=== PATIENT | female | born 1960 | race Caucasian/White ===

== ENCOUNTER 2018-07-12 08:55 | Inpatient (IN) | payer OTHER ==
[2018-07-12 09:40] LABS: ADD MAN DIFF? NO
[2018-07-12 09:43] LABS: WHITE BLOOD COUNT 19.6 10^3/ul (4.8-10.8)
[2018-07-12 09:43] LABS: BASOPHIL # 0.1 10^3/ul (0.0-0.1); BASOPHILS % 0.3 % (0.0-2.0); EOSINOPHILS # 0.1 10^3/ul (0.0-0.5); EOSINOPHILS % 0.5 % (0.0-7.0); HEMATOCRIT 39.6 % (37.0-47.0); HEMOGLOBIN 12.6 g/dl (12.0-16.0); LYMPHOCYTES # 3.1 10^3/ul (0.8-2.9); LYMPHOCYTES % 15.8 % (15.0-51.0); MEAN CORPUSCULAR HEMOGLOBIN 28.6 pg (29.0-33.0); MEAN CORPUSCULAR HGB CONC 31.8 g/dl (32.0-37.0); MEAN PLATELET VOLUME 10.8 fl (7.4-10.4); MONOCYTE # 1.2 10^3/ul (0.3-0.9); NEUTROPHIL # 15.1 10^3/ul (1.6-7.5); NEUTROPHILS % 76.8 % (39.0-77.0); PLATELET COUNT 346 10^3/UL (140-415); RED CELL DISTRIBUTION WIDTH 12.7 % (11.5-14.5)
[2018-07-12 09:49] LABS: ADD UMIC YES; UR ASCORBIC ACID NEGATIVE (NEGATIVE); UR BACTERIA FEW /HPF (NONE SEEN); UR BILIRUBIN (Dip) NEGATIVE (NEGATIVE); UR BLOOD (Dip) NEGATIVE (NEGATIVE); UR CLARITY CLOUDY (CLEAR); UR COLOR AMBER (YELLOW); UR GLUCOSE (Dip) NEGATIVE (NEGATIVE); UR KETONES (Dip) NEGATIVE (NEGATIVE); UR LEUKOCYTE ESTERASE (Dip) 1+ Leu/ul (NEGATIVE); UR MUCUS MANY /HPF (NONE SEEN); UR NITRITE (Dip) NEGATIVE (NEGATIVE); UR RBC 2 /HPF (0-5); UR SPECIFIC GRAVITY (Dip) 1.025 (1.003-1.030); UR SQUAMOUS EPITHELIAL CELL MODERATE /HPF (FEW); UR TOTAL PROTEIN (Dip) 2+ mg/dl (NEGATIVE); UR UROBILINOGEN (Dip) 2+ mg/dL (NEGATIVE); UR WBC 14 /HPF (0-5)
[2018-07-12] MEDS: ONDANSETRON 4 MG INJ IV ×2 (09:49→21:18)
[2018-07-12] MEDS: SOD CHLORIDE 0.9% 1,000 ML IV ×2 (09:49→15:18)
[2018-07-12] MEDS: LIDOCAINE/MYLANTA 40 ML BTL PO (09:49)
[2018-07-12 09:50] LABS: INR 1.03; PROTIME 13.6 Sec (11.9-14.9); PT RATIO 1.1
[2018-07-12] MEDS: BELLADONNA/PHENOBARBITAL TAB PO (09:50)
[2018-07-12] MEDS: morphine 4 MG/ML VIAL IV (09:50)
[2018-07-12 09:53] LABS: ALANINE AMINOTRANSFERASE 25 IU/L (13-69); ALBUMIN 4.4 g/dl (3.3-4.9); ALBUMIN/GLOBULIN RATIO 0.86; ALKALINE PHOSPHATASE 99 IU/L (42-121); ANION GAP 17 (8-16); ASPARTATE AMINO TRANSFERASE 40 IU/L (15-46); BILIRUBIN,INDIRECT 0.5 mg/dl (0-1.1); BILIRUBIN,TOTAL 0.5 mg/dl (0.2-1.3); BLOOD UREA NITROGEN 14 mg/dl (7-20); CALCIUM 9.6 mg/dl (8.4-10.2); CARBON DIOXIDE 25 mmol/L (21-31); CHLORIDE 103 mmol/L (97-110); GLUCOSE 125 mg/dl (70-220); LIPASE 74 U/L (23-300); SODIUM 140 mmol/L (135-144); TOTAL PROTEIN 9.5 g/dl (6.1-8.1)
[2018-07-12] MEDS: CEFTRIAXONE 1 GM/50 ML (PMX) 50 ML IVPB (12:01)
[2018-07-12] MEDS: metroNIDAZOLE 500 MG/NS (PMX) 100 ML IVPB ×3 (13:19→22:13)
[2018-07-12] MEDS ORDERED: MAGNESIUM HYDROXIDE 30ML CUP PO (14:30)
[2018-07-12] MEDS ORDERED: NA PHOSPHATE/BIPHOS 133 ML ENEMA PR (14:30)
[2018-07-12] MEDS ORDERED: DOCUSATE SODIUM 100 MG CAP PO (14:30)
[2018-07-12] MEDS ORDERED: LORAZEPAM 2 MG INJ IV (14:30)
[2018-07-12] MEDS ORDERED: GLUCAGON 1 MG INJ IM (14:30)
[2018-07-12] MEDS ORDERED: GLUCOSE GEL 15 GRAM TUBE PO ×2 (14:30)
[2018-07-12] MEDS ORDERED: GLUCOSE GEL 15 GRAM TUBE BUCCAL (14:30)
[2018-07-12] MEDS ORDERED: NACL 0.9% 3 ML SYG IV (14:30)
[2018-07-12] MEDS ORDERED: ACETAMINOPHEN 325 MG TAB PO (14:30)
[2018-07-12] MEDS ORDERED: NITROGLYCERIN (SL) 0.4 MG TAB SL (14:30)
[2018-07-12] MEDS ORDERED: DEXTROSE 50% 50 ML SYRINGE IV ×2 (14:30)
[2018-07-12] MEDS ORDERED: ALBUTEROL/IPRATROPIUM (NEB) 3 ML AMP HHN (14:30)
[2018-07-12 14:50] LABS: INR 1.05; PROTIME 13.8 Sec (11.9-14.9); PT RATIO 1.1
[2018-07-12 14:51] LABS: PARTIAL THROMBOPLASTIN TIME 30.1 Sec (25.0-35.0)
[2018-07-12] MEDS: morphine 2 MG INJ IV ×2 (15:18→21:18)
[2018-07-12 15:22] LABS: FREE T4 (FREE THYROXINE) 1.35 ng/dl (0.64-1.79)
[2018-07-12] MEDS: INSULIN ASPART [NOVOLOG] 3 ML PEN SC ×2 (17:00→21:00)
[2018-07-12] MEDS: CIPROFLOXACIN 400MG/D5W 200 ML IVPB ×2 (18:00→21:09)
[2018-07-12] MEDS: HEPARIN 5,000 UNIT/0.5 ML VIAL SC (21:10)
[2018-07-13] MEDS: SOD CHLORIDE 0.9% 1,000 ML IV ×3 (00:13→17:40)
[2018-07-13] MEDS: INSULIN ASPART [NOVOLOG] 3 ML PEN SC ×6 (01:00→20:19)
[2018-07-13] MEDS: morphine 2 MG INJ IV ×2 (01:33→09:08)
[2018-07-13] MEDS: metroNIDAZOLE 500 MG/NS (PMX) 100 ML IVPB ×3 (05:39→21:19)
[2018-07-13] MEDS: PANTOPRAZOLE (EC) 40 MG TAB PO (05:40)
[2018-07-13 07:16] LABS: ADD MAN DIFF? NO
[2018-07-13 07:20] LABS: BASOPHILS % 0.2 % (0.0-2.0); EOSINOPHILS # 0.1 10^3/ul (0.0-0.5); EOSINOPHILS % 0.5 % (0.0-7.0); HEMATOCRIT 33.6 % (37.0-47.0); HEMOGLOBIN 10.8 g/dl (12.0-16.0); LYMPHOCYTES # 1.8 10^3/ul (0.8-2.9); LYMPHOCYTES % 10.9 % (15.0-51.0); MEAN CORPUSCULAR HEMOGLOBIN 29.4 pg (29.0-33.0); MEAN CORPUSCULAR HGB CONC 32.1 g/dl (32.0-37.0); MEAN CORPUSCULAR VOLUME 91.6 fl (82.0-101.0); MEAN PLATELET VOLUME 10.9 fl (7.4-10.4); NEUTROPHIL # 13.8 10^3/ul (1.6-7.5); NEUTROPHILS % 81.9 % (39.0-77.0); PLATELET COUNT 267 10^3/UL (140-415); RED BLOOD COUNT 3.67 10^6/ul (4.20-5.40); RED CELL DISTRIBUTION WIDTH 12.6 % (11.5-14.5)
[2018-07-13 07:20] LABS: WHITE BLOOD COUNT 16.9 10^3/ul (4.8-10.8)
[2018-07-13 07:43] LABS: HEMOGLOBIN A1C 6.5 % (0-5.9)
[2018-07-13 07:47] LABS: ANION GAP 11 (8-16); BLOOD UREA NITROGEN 8 mg/dl (7-20); CALCIUM 8.6 mg/dl (8.4-10.2); CARBON DIOXIDE 26 mmol/L (21-31); CHLORIDE 106 mmol/L (97-110); CHOL/HDL RATIO 5.4 RATIO; CHOLESTEROL 104 mg/dl (100-200); CREATININE 0.62 mg/dl (0.44-1.00); GLUCOSE 119 mg/dl (70-220); HDL CHOLESTEROL 19 mg/dl (35-98); LDL CHOLESTEROL,CALCULATED 69 mg/dl; MAGNESIUM 2.1 mg/dl (1.7-2.5); PHOSPHORUS 3.5 mg/dl (2.5-4.9); POTASSIUM 3.9 mmol/L (3.5-5.1); SODIUM 139 mmol/L (135-144); TRIGLYCERIDES 81 mg/dl (0-149)
[2018-07-13] MEDS: CIPROFLOXACIN 400MG/D5W 200 ML IVPB ×2 (09:06→20:15)
[2018-07-13] MEDS: HEPARIN 5,000 UNIT/0.5 ML VIAL SC ×2 (09:08→20:22)
[2018-07-13] MEDS ORDERED: morphine LIQ (10 MG/5 ML) CUP PO (15:00)
[2018-07-13] MEDS: HYDROCODONE/APAP (5/325) TAB PO (17:40)
[2018-07-13] MEDS: ONDANSETRON 4 MG INJ IV (21:59)
[2018-07-14] MEDS: SOD CHLORIDE 0.9% 1,000 ML IV ×3 (06:11→23:00)
[2018-07-14] MEDS: PANTOPRAZOLE (EC) 40 MG TAB PO (06:11)
[2018-07-14] MEDS: metroNIDAZOLE 500 MG/NS (PMX) 100 ML IVPB ×3 (06:11→22:29)
[2018-07-14] MEDS: HYDROCODONE/APAP (5/325) TAB PO ×2 (06:14→19:38)
[2018-07-14 06:15] LABS: ADD MAN DIFF? NO
[2018-07-14 06:19] LABS: BASOPHILS % 0.2 % (0.0-2.0); EOSINOPHILS # 0.1 10^3/ul (0.0-0.5); EOSINOPHILS % 0.7 % (0.0-7.0); HEMATOCRIT 32.3 % (37.0-47.0); HEMOGLOBIN 10.4 g/dl (12.0-16.0); LYMPHOCYTES # 2.1 10^3/ul (0.8-2.9); LYMPHOCYTES % 14.8 % (15.0-51.0); MEAN CORPUSCULAR HEMOGLOBIN 29.4 pg (29.0-33.0); MEAN CORPUSCULAR HGB CONC 32.2 g/dl (32.0-37.0); MEAN CORPUSCULAR VOLUME 91.2 fl (82.0-101.0); MEAN PLATELET VOLUME 11.4 fl (7.4-10.4); MONOCYTES % 7.3 % (0.0-11.0); NEUTROPHIL # 10.7 10^3/ul (1.6-7.5); NEUTROPHILS % 76.6 % (39.0-77.0); PLATELET COUNT 266 10^3/UL (140-415); RED BLOOD COUNT 3.54 10^6/ul (4.20-5.40); RED CELL DISTRIBUTION WIDTH 12.4 % (11.5-14.5)
[2018-07-14 06:58] LABS: ANION GAP 9 (8-16); BLOOD UREA NITROGEN 5 mg/dl (7-20); CALCIUM 8.5 mg/dl (8.4-10.2); CARBON DIOXIDE 28 mmol/L (21-31); CHLORIDE 105 mmol/L (97-110); CREATININE 0.62 mg/dl (0.44-1.00); GLUCOSE 104 mg/dl (70-220); SODIUM 138 mmol/L (135-144)
[2018-07-14] MEDS: INSULIN ASPART [NOVOLOG] 3 ML PEN SC ×4 (08:00→20:42)
[2018-07-14] MEDS: CIPROFLOXACIN 400MG/D5W 200 ML IVPB ×2 (09:29→20:40)
[2018-07-14] MEDS: HEPARIN 5,000 UNIT/0.5 ML VIAL SC ×2 (09:35→20:54)
[2018-07-14] MEDS: IOHEXOL 14.3 MG(I)/ML (ADULT) BTL PO (16:34)
[2018-07-14] MEDS: IOHEXOL 300MG/ML 150 ML BTL (19:31)
[2018-07-14] MEDS: SOD CHLORIDE 0.9% 100 ML (19:31)
[2018-07-15] MEDS: SOD CHLORIDE 0.9% 1,000 ML IV ×3 (02:13→22:13)
[2018-07-15] MEDS: metroNIDAZOLE 500 MG/NS (PMX) 100 ML IVPB (05:18)
[2018-07-15] MEDS: PANTOPRAZOLE (EC) 40 MG TAB PO (05:18)
[2018-07-15] MEDS: INSULIN ASPART [NOVOLOG] 3 ML PEN SC ×4 (08:00→20:42)
[2018-07-15 08:02] LABS: ADD MAN DIFF? NO
[2018-07-15 08:17] LABS: WHITE BLOOD COUNT 14.7 10^3/ul (4.8-10.8)
[2018-07-15 08:17] LABS: BASOPHILS % 0.2 % (0.0-2.0); EOSINOPHILS # 0.1 10^3/ul (0.0-0.5); EOSINOPHILS % 0.5 % (0.0-7.0); HEMATOCRIT 32.1 % (37.0-47.0); HEMOGLOBIN 10.2 g/dl (12.0-16.0); LYMPHOCYTES % 13.9 % (15.0-51.0); MEAN CORPUSCULAR HEMOGLOBIN 28.3 pg (29.0-33.0); MEAN CORPUSCULAR HGB CONC 31.8 g/dl (32.0-37.0); MEAN CORPUSCULAR VOLUME 89.2 fl (82.0-101.0); MEAN PLATELET VOLUME 11.4 fl (7.4-10.4); NEUTROPHIL # 11.4 10^3/ul (1.6-7.5); NEUTROPHILS % 77.7 % (39.0-77.0); PLATELET COUNT 290 10^3/UL (140-415); RED CELL DISTRIBUTION WIDTH 12.6 % (11.5-14.5)
[2018-07-15] MEDS: CIPROFLOXACIN 400MG/D5W 200 ML IVPB (08:34)
[2018-07-15 08:37] LABS: PHOSPHORUS 3.6 mg/dl (2.5-4.9)
[2018-07-15 08:37] LABS: MAGNESIUM 1.9 mg/dl (1.7-2.5)
[2018-07-15] MEDS: HEPARIN 5,000 UNIT/0.5 ML VIAL SC ×2 (08:40→20:41)
[2018-07-15 08:44] LABS: ANION GAP 12 (8-16); BLOOD UREA NITROGEN 4 mg/dl (7-20); CALCIUM 8.7 mg/dl (8.4-10.2); CARBON DIOXIDE 29 mmol/L (21-31); CHLORIDE 101 mmol/L (97-110); CREATININE 0.65 mg/dl (0.44-1.00); GLUCOSE 110 mg/dl (70-220); POTASSIUM 3.6 mmol/L (3.5-5.1); SODIUM 138 mmol/L (135-144)
[2018-07-15] MEDS: HYDROCODONE/APAP (5/325) TAB PO ×2 (08:50→19:55)
[2018-07-15] MEDS: hydrALAzine 20 MG INJ IV (14:08)
[2018-07-15] MEDS: PIPER-TAZO 3.375 GM IV (PMX) 100 ML IVPB ×2 (14:08→19:31)
[2018-07-15] MEDS ORDERED: LIDOCAINE 1% (MPF) 5 ML VIAL ×2 (16:36→16:38)
[2018-07-15] MEDS ORDERED: MIDAZOLAM 1 MG/ML 2 ML INJ (17:18)
[2018-07-15] MEDS ORDERED: SOD CHLORIDE 0.9% 500 ML (17:18)
[2018-07-15] MEDS ORDERED: FENTAnyl 50 MCG/ML VIAL (17:18)
[2018-07-15] MEDS: IOHEXOL 300MG/ML 150 ML BTL (17:30)
[2018-07-16] MEDS: PIPER-TAZO 3.375 GM IV (PMX) 100 ML IVPB ×3 (00:45→12:03)
[2018-07-16] MEDS: HYDROCODONE/APAP (5/325) TAB PO (01:02)
[2018-07-16 05:00] LABS: ADD MAN DIFF? NO
[2018-07-16 05:11] LABS: BASOPHILS % 0.1 % (0.0-2.0); EOSINOPHILS % 0.1 % (0.0-7.0); HEMATOCRIT 33.2 % (37.0-47.0); HEMOGLOBIN 10.6 g/dl (12.0-16.0); LYMPHOCYTES # 1.8 10^3/ul (0.8-2.9); LYMPHOCYTES % 12.8 % (15.0-51.0); MEAN CORPUSCULAR HEMOGLOBIN 28.4 pg (29.0-33.0); MEAN CORPUSCULAR HGB CONC 31.9 g/dl (32.0-37.0); MEAN PLATELET VOLUME 10.9 fl (7.4-10.4); MONOCYTE # 0.7 10^3/ul (0.3-0.9); MONOCYTES % 4.8 % (0.0-11.0); NEUTROPHIL # 11.3 10^3/ul (1.6-7.5); NEUTROPHILS % 81.5 % (39.0-77.0); PLATELET COUNT 297 10^3/UL (140-415); RED BLOOD COUNT 3.73 10^6/ul (4.20-5.40); RED CELL DISTRIBUTION WIDTH 12.8 % (11.5-14.5)
[2018-07-16 05:11] LABS: WHITE BLOOD COUNT 13.8 10^3/ul (4.8-10.8)
[2018-07-16] MEDS: SOD CHLORIDE 0.9% 1,000 ML IV ×2 (05:28→08:13)
[2018-07-16 05:45] LABS: ANION GAP 14 (8-16); BLOOD UREA NITROGEN 6 mg/dl (7-20); CALCIUM 8.6 mg/dl (8.4-10.2); CARBON DIOXIDE 29 mmol/L (21-31); CHLORIDE 103 mmol/L (97-110); CREATININE 0.62 mg/dl (0.44-1.00); GLUCOSE 112 mg/dl (70-220); POTASSIUM 3.2 mmol/L (3.5-5.1); SODIUM 143 mmol/L (135-144)
[2018-07-16] MEDS: PANTOPRAZOLE (EC) 40 MG TAB PO (05:51)
[2018-07-16] MEDS: INSULIN ASPART [NOVOLOG] 3 ML PEN SC ×2 (08:00→12:13)
[2018-07-16] MEDS: HEPARIN 5,000 UNIT/0.5 ML VIAL SC (08:43)
[2018-07-16] MEDS: POTASSIUM CHLORIDE (SR) 20 MEQ TAB PO (09:42)
== END 2018-07-16 15:25 | disposition short-term general hospital (02) | DRG 689 ==
LOC: E/R 08:55 → 2NE 12:33
PROC: 0W9J30Z Drainage of Pelvic Cavity with Drainage Device, Percutaneous Approach (ICD-10-PCS; principal; 2018-07-15)
DX: N39.0 Urinary tract infection, site not specified (principal); K65.1 Peritoneal abscess; E11.9 Type 2 diabetes mellitus without complications; K57.90 Diverticulosis of intestine, part unspecified, without perforation or abscess without bleeding; R91.1 Solitary pulmonary nodule; E66.9 Obesity, unspecified; Z68.30 Body mass index [BMI] 30.0-30.9, adult; Z90.49 Acquired absence of other specified parts of digestive tract; Z79.84 Long term (current) use of oral hypoglycemic drugs
CPT/HCPCS: 36415; 74176; 74177; 75989; 77012; 80048; 80053; 80061; 81001; 82962; 83036; 83690; 83735; 84100; 84439; 84443; 85025; 85610; 85730; 87070; 87075; 87102; 87116; 96374; 96375; 97116; 97161; 97530; 99285-25